=== PATIENT | female | born 1990 | race Caucasian/White ===

== ENCOUNTER 2017-04-10 21:24 | Emergency (ER) | payer OTHER, MEDICAID ==
[~2017-04-10] VITALS: Ht 160 cm; Wt 84.8 kg
[~2017-04-10 21:24] MED LIST: ACETAMINOPHEN-1 EAC1 PO; ADVAIR; ADVAIR HFA115 MCG/21 INH; ALBUTEROL2.5 MG/31 INH; AMOXICILLIN500 M1 PO; ANTIVERT25 MG PO; APAP500 PO; ASPIR 8181 MG PO; AUGMENTIN 875875 MG PO; BENADRYL25 MG PO; BENZONATATE200 MG; CIPROFLOXACIN500 M1 PO; DEPRESSION PO; DICLEGIS DR 101 EACH PO; IBUPROFEN 800800 M1 PO; KEFLEX500 MG; KEFLEX500 MG PO; MEDROLDOSEPACK PO; METFORMIN HCL500 MG; METROGEL-VAGINA70 GM VG; NAPROSYN500 MG PO; NOHOMEMEDICATIONS; NORCO 5-325 TA1 EACH PO; ONDANSETRON HCL4 M2 PO; OSELB75 PO; PENICILLIN VK500 M1 PO; PREDNISONE 10 M10 MG; PRENATAL; PROAIR HFA8.5 GM PO; SYMBICORT160 MCG/4. INH; TESSALON PERLE100 MG PO; TRINATE TABLET1 TAB PO; VENTOLIN HFA 1818 GM INH; XANAX 0.5 MG0.5 MG PO; ZANTAC 150MG T150 MG PO; ZOFRAN ODT4 MG PO; ZOFRAN ODT4 MG SUBLING; ZOFRAN4 MG PO; ZPAK PO
[2017-04-10] MEDS ORDERED: PRENATAL (21:33)
[2017-04-10] MEDS ORDERED: CLEOCIN HCL150 MG PO (21:52)
[2017-04-10] MEDS ORDERED: ERYTHROMYCIN E3.5 G2 TOP (21:54)
[2017-04-10 22:00] VITALS: BP 122/69
== END 2017-04-10 22:00 | disposition home or self-care (01) ==
LOC: M.ERS 21:24
DX: H00.014 Hordeolum externum left upper eyelid (principal); H00.036 Abscess of eyelid left eye, unspecified eyelid; J45.909 Unspecified asthma, uncomplicated; F32.9 Major depressive disorder, single episode, unspecified; F41.9 Anxiety disorder, unspecified; Z88.1 Allergy status to other antibiotic agents

== ENCOUNTER 2018-04-14 13:40 | Emergency (ER) | payer OTHER, MEDICAID ==
[~2018-04-14] VITALS: Ht 160 cm; Wt 88.9 kg
[~2018-04-14 13:40] MED LIST changes: +CLEOCIN HCL150 MG PO; +ERYTHROMYCIN E3.5 G2 TOP
[2018-04-14] MEDS ORDERED: SERTRALINE HCL50 MG PO (14:04)
[2018-04-14] MEDS ORDERED: SYMBICORT160 MCG/4. INH (14:50)
[2018-04-14] MEDS ORDERED: VENTOLIN HFA INH8 GM INH (14:50)
[2018-04-14] MEDS ORDERED: ZPAK PO (14:50)
[2018-04-14 14:57] VITALS: BP 125/61
== END 2018-04-14 14:58 | disposition home or self-care (01) ==
LOC: M.ERS 13:40
DX: J20.9 Acute bronchitis, unspecified (principal); J45.909 Unspecified asthma, uncomplicated; F32.9 Major depressive disorder, single episode, unspecified; F41.9 Anxiety disorder, unspecified; Z88.1 Allergy status to other antibiotic agents

== ENCOUNTER 2018-04-28 08:42 | Emergency (ER) | payer OTHER, MEDICAID ==
[~2018-04-28] VITALS: Ht 160 cm; Wt 92.3 kg
[~2018-04-28 08:42] MED LIST changes: +SERTRALINE HCL50 MG PO; +VENTOLIN HFA INH8 GM INH
[2018-04-28 09:42] LABS: HEMATOCRIT 43.3 % (37.0-47.0); HEMOGLOBIN 14.6 gm/dL (12.0-15.0); MCH 27.7 pg (26.0-34.0); MCHC 33.6 g/dL (28.0-37.0); MCV 82.5 fL (80.0-100.0); MPV 7.9 fl. (7.2-11.1); NUCLEATED RBCS 0 /100WBC; PLATELET COUNT* 302 thou/uL (150-400); RBC 5.25 mil/uL (4.20-5.00); RDW-CV 13.3 % (10.5-14.5); WBC 11.8 thou/uL (4.0-11.0)
[2018-04-28 09:53] LABS: CALCIUM 9.1 mg/dL (8.5-10.1); CREATININE 0.8 mg/dL (0.6-1.3); POTASSIUM 4.2 mmol/L (3.5-5.1)
[2018-04-28 09:58] LABS: ALBUMIN 3.9 g/dL (3.4-5.0); TOTAL BILIRUBIN 0.6 mg/dL (<0.1-1.0)
[2018-04-28 10:17] LABS: ABSOLUTE LYMPHOCYTES 0.9 thou/uL (0.8-5.3); ABSOLUTE MONOCYTES 0.5 thou/uL (0.0-1.2); ABSOLUTE NEUTROPHILS 10.4 thou/uL (1.6-8.1); PLATELET ESTIMATE ADEQUATE
[2018-04-28] MEDS ORDERED: ZOFRAN ODT4 MG PO (11:28)
[2018-04-28 11:39] VITALS: BP 99/46
== END 2018-04-28 11:40 | disposition home or self-care (01) ==
LOC: M.ERS 08:42
PROVIDERS: Personal Emergency Response Attendant
DX: K52.9 Noninfective gastroenteritis and colitis, unspecified (principal); J45.909 Unspecified asthma, uncomplicated; F32.9 Major depressive disorder, single episode, unspecified; F41.9 Anxiety disorder, unspecified; Z88.1 Allergy status to other antibiotic agents

== ENCOUNTER 2018-08-07 18:06 | Emergency (ER) | payer OTHER, MEDICAID ==
[~2018-08-07] VITALS: Ht 160 cm; Wt 83.5 kg
[2018-08-07] MEDS ORDERED: ACCUNEB SO1.25 MG/1 INH (18:16)
[2018-08-07 18:44] LABS: URINE BILIRUBIN NEGATIVE (Negative); URINE BLOOD NEGATIVE (Negative); URINE CLARITY CLEAR; URINE COLOR YELLOW; URINE GLUCOSE-RANDOM NEGATIVE (Negative); URINE KETONES NEGATIVE (Negative); URINE LEUKOCYTES-REFLEX NEGATIVE (Negative); URINE NITRITE-REFLEX NEGATIVE (Negative); URINE PROTEIN NEGATIVE (Negative); URINE SPECIFIC GRAVITY 1.025 (1.005-1.030); URINE UROBILINOGEN 0.2 E.U./dl (0.2-1.0)
[2018-08-07 19:00] LABS: ABSOLUTE BASOPHILS 0.1 thou/uL (0.0-0.2); ABSOLUTE EOSINOPHILS 0.6 thou/uL (0.0-0.7); ABSOLUTE LYMPHOCYTES 2.7 thou/uL (0.8-5.3); ABSOLUTE MONOCYTES 0.6 thou/uL (0.0-1.2); ABSOLUTE NEUTROPHILS 4.7 thou/uL (1.6-8.1); BASOPHILS 0.7 %; EOSINOPHILS 7.1 %; HEMATOCRIT 40.9 % (37.0-47.0); HEMOGLOBIN 13.6 gm/dL (12.0-15.0); MCH 27.4 pg (26.0-34.0); MCHC 33.2 g/dL (28.0-37.0); MCV 82.5 fL (80.0-100.0); MONOCYTES 7.1 %; MPV 7.9 fl. (7.2-11.1); NUCLEATED RBCS 0 /100WBC; PLATELET COUNT* 285 thou/uL (150-400); POLYS 54.1 %; RBC 4.95 mil/uL (4.20-5.00); RDW-CV 13.6 % (10.5-14.5); WBC 8.7 thou/uL (4.0-11.0)
[2018-08-07 19:09] LABS: CREATININE 0.8 mg/dL (0.6-1.3); POTASSIUM 3.9 mmol/L (3.5-5.1)
[2018-08-07 19:13] LABS: ALBUMIN 3.5 g/dL (3.4-5.0); TOTAL BILIRUBIN 0.2 mg/dL (<0.1-1.0); TOTAL PROTEIN 6.9 g/dL (6.4-8.2)
[2018-08-07] MEDS ORDERED: TORADOL 10 MG T10 MG PO (20:13)
[2018-08-07 20:22] VITALS: BP 142/85
== END 2018-08-07 20:23 | disposition home or self-care (01) ==
LOC: M.ERS 18:06
PROVIDERS: Nurse Practitioner Family
DX: R51 Headache (principal); J45.909 Unspecified asthma, uncomplicated; F32.9 Major depressive disorder, single episode, unspecified; F41.9 Anxiety disorder, unspecified; Z88.1 Allergy status to other antibiotic agents

== ENCOUNTER 2018-10-05 13:56 | Emergency (ER) | payer OTHER, MEDICAID ==
[~2018-10-05] VITALS: Ht 160 cm; Wt 81.7 kg
[~2018-10-05 13:56] MED LIST changes: +ACCUNEB SO1.25 MG/1 INH; +TORADOL 10 MG T10 MG PO
[2018-10-05] MEDS ORDERED: PRENATAL (14:10)
[2018-10-05 14:49] VITALS: BP 142/78
[2018-10-05] MEDS ORDERED: VISTARIL 25 MG25 M1 PO (14:56)
== END 2018-10-05 14:49 | disposition home or self-care (01) ==
LOC: M.ERS 13:56
DX: Z53.21 Procedure and treatment not carried out due to patient leaving prior to being seen by health care provider (principal)

== ENCOUNTER 2018-11-19 08:39 | Emergency (ER) | payer OTHER, MEDICAID ==
[~2018-11-19] VITALS: Ht 160 cm; Wt 83.9 kg
[~2018-11-19 08:39] MED LIST changes: +VISTARIL 25 MG25 M1 PO
[2018-11-19] MEDS ORDERED: TYLENOL325 M1 PO (09:00)
[2018-11-19] MEDS ORDERED: AMOXICILLIN 50500 MG PO (09:00)
[2018-11-19 09:13] LABS: URINE BILIRUBIN NEGATIVE (Negative); URINE BLOOD NEGATIVE (Negative); URINE CLARITY CLEAR; URINE COLOR YELLOW; URINE GLUCOSE-RANDOM NEGATIVE (Negative); URINE KETONES NEGATIVE (Negative); URINE LEUKOCYTES-REFLEX NEGATIVE (Negative); URINE NITRITE-REFLEX NEGATIVE (Negative); URINE PROTEIN TRACE (Negative); URINE SPECIFIC GRAVITY 1.025 (1.005-1.030); URINE UROBILINOGEN 0.2 E.U./dl (0.2-1.0)
[2018-11-19] MEDS ORDERED: MICONAZOLE 7 S100 M1 VAG (11:05)
[2018-11-19 11:14] VITALS: BP 119/59
== END 2018-11-19 11:15 | disposition home or self-care (01) ==
LOC: M.ERS 08:39
PROVIDERS: Emergency Medicine
DX: O20.0 Threatened abortion (principal); F17.210 Nicotine dependence, cigarettes, uncomplicated; J45.909 Unspecified asthma, uncomplicated; F32.9 Major depressive disorder, single episode, unspecified; F41.9 Anxiety disorder, unspecified; Z88.1 Allergy status to other antibiotic agents; Z3A.12 12 weeks gestation of pregnancy

== ENCOUNTER 2019-10-13 08:18 | Emergency (ER) | payer OTHER, MEDICAID ==
[~2019-10-13] VITALS: Ht 160 cm; Wt 78.9 kg
[~2019-10-13 08:18] MED LIST changes: +AMOXICILLIN 50500 MG PO; +MICONAZOLE 7 S100 M1 VAG; +TYLENOL325 M1 PO
[2019-10-13 08:51] LABS: ICTOTEST (BILI CONFIRMATORY) Negative (Negative); URINE BILIRUBIN 1+ (Negative); URINE BLOOD NEGATIVE (Negative); URINE CLARITY CLEAR; URINE COLOR YELLOW; URINE GLUCOSE-RANDOM NEGATIVE (Negative); URINE KETONES TRACE (Negative); URINE LEUKOCYTES-REFLEX TRACE (Negative); URINE NITRITE-REFLEX NEGATIVE (Negative); URINE PROTEIN 2+ (Negative); URINE SPECIFIC GRAVITY 1.025 (1.005-1.030); URINE UROBILINOGEN 0.2 E.U./dl (0.2-1.0)
[2019-10-13 09:11] LABS: BACTERIA-REFLEX >30 Many /HPF (None Seen); CASTS None Seen /LPF (None Seen); MUCUS >6 Heavy strn/LPF (None Seen); SQUAMOUS >10 Many /LPF (0-3); URINE RBC 0-2 Rare /HPF (0-2); URINE WBC-REFLEX 6-15 Few /HPF (0-5)
[2019-10-13 09:12] LABS: CRYSTALS None Seen /LPF (None Seen)
[2019-10-13] MEDS ORDERED: AMOXICILLIN500 M1 PO (09:20)
[2019-10-13 09:27] VITALS: BP 117/74
== END 2019-10-13 09:28 | disposition home or self-care (01) ==
LOC: M.ERS 08:18
PROVIDERS: Personal Emergency Response Attendant
DX: N93.8 Other specified abnormal uterine and vaginal bleeding (principal); J45.909 Unspecified asthma, uncomplicated; F32.9 Major depressive disorder, single episode, unspecified; F41.9 Anxiety disorder, unspecified; F17.210 Nicotine dependence, cigarettes, uncomplicated; Z88.1 Allergy status to other antibiotic agents